=== PATIENT | female | born 1970 | race Caucasian/White ===

== ENCOUNTER 2016-05-23 11:28 | Emergency (ER) | payer OTHER ==
[2016-05-23 11:35] VITALS: RESP 16; TEMP 97.9
--- NOTE | 2016-05-23 13:08 | EDPHY ---
H & P Time Seen by Provider: 05/23/16 12:24 HPI/ROS: CHIEF COMPLAINT: Laceration right index finger HISTORY OF PRESENT ILLNESS: 46-year-old female presents to the emergency department with laceration to the right index finger. The patient was at home and reached for utensils in the sink and accidentally cut her right index finger. The incident happened just prior to arrival. She is right-hand dominant. She believes her tetanus shot is current. ROS: Denies numbness or tingling in her fingers, retained foreign body, bony injury. Past Medical/Surgical History: Negative Social History: Smoking Status: Never smoked Physical Exam: On examination the patient has a 1 cm flap laceration noted to the distal, palmar aspect of the right index finger. Slow active bleeding noted. The wound does not extend into the DIP joint. No nail avulsion noted. The other fingers appear on injured. No palpable bony tenderness. Constitutional: Initial Vital Signs Temperature (C) 36.6 C 05/23/16 11:32 Heart Rate 64 05/23/16 11:32 Respiratory Rate 16 05/23/16 11:32 Blood Pressure 110/74 05/23/16 11:32 O2 Sat (%) 95 05/23/16 11:32 O2 Delivery Mode Room Air Allergies/Adverse Reactions: No Known Allergies Allergy (Unverified 05/23/16 11:32) Home Medications: Medication Instructions Recorded NK [No Known Home Meds] 05/23/16 MDM/Departure - MDM Procedures: Laceration repair. Verbal consent was obtained from the patient. The 1 cm flap laceration on the right index was anesthetized using less than 1 mL of 1% lidocaine with epinephrine. The wound was irrigated with saline, draped and explored to its base with a gloved finger. There were no deep structures involved. No tendon injury was identified. The wound was repaired with 5 0 Ethilon, 3 sutures. The wound repair was simple. The procedure was performed by myself. ED Course/Re-evaluation: 46-year-old female presents to the emergency department with laceration to the right index finger. The wound was repaired, see procedure note. She was given wound care precautions. - Depart Disposition: Home, Routine, Self-Care Clinical Impression: Laceration right 2nd finger Condition: Good Instructions: Care For Your Stitches (ED), Laceration (ED), Acute Wounds (ED) Additional Instructions: Wound Care Follow-Up: Removal of sutures in 10 days. Suture removal is complimentary in uncomplicated cases. Infection or abnormal findings would require reevaluation by the MD. In that case, you may be billed. Return if you notice any signs or symptoms of infection such as redness, swelling, increased pain, fever, purulent drainage.
[2016-05-23 13:30] VITALS: BP 119/79; PULSE 56; O2SAT 99
== END 2016-05-23 13:30 | disposition home or self-care (01) ==
PROC: 0HQFXZZ Repair Right Hand Skin, External Approach (ICD-10-PCS; principal; 2016-05-23)
DX: S61.210A Laceration without foreign body of right index finger without damage to nail, initial encounter (principal); W26.8XXA Contact with other sharp object(s), not elsewhere classified, initial encounter; Y92.009 Unspecified place in unspecified non-institutional (private) residence as the place of occurrence of the external cause; Y93.89 Activity, other specified

== ENCOUNTER 2017-06-05 16:08 | Emergency (ER) | payer OTHER ==
[2017-06-05 16:14] VITALS: RESP 18
--- NOTE | 2017-06-05 16:23 | EDPHY ---
H & P Time Seen by Provider: 06/05/17 16:20 HPI/ROS: CHIEF COMPLAINT: Left wrist pain HISTORY OF PRESENT ILLNESS: This patient is a 47 y/o female complaining of left wrist pain secondary to a fall while snowboarding earlier today. 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 Initially , she felt some minor discomfort, but this increased as she continued down the mountain. The pain is now moderate and increases with wrist movement. She denies any other injuries. She did not hit her head; no headache or neck pain. ROS: No numbness, weakness, bleeding, syncopal episode, other injury. Past Medical/Surgical History: Denies. Social History: Nonsmoker. Lives in [place]. . Works as outdoor adventure instructor. Smoking Status: Never smoked Physical Exam: Alert and pleasant Extremities: Tenderness and swelling over distal radius. Skin: Intact Neuro: Motor and sensory intact Vascular: Capillary refill brisk distally Constitutional: Initial Vital Signs Temperature (C) 36.6 C 06/05/17 16:11 Heart Rate 64 06/05/17 16:11 Respiratory Rate 18 06/05/17 16:11 Blood Pressure 99/89 H 06/05/17 16:11 O2 Sat (%) 93 06/05/17 16:11 O2 Delivery Mode Room Air Allergies/Adverse Reactions: No Known Allergies Allergy (Verified 06/05/17 16:10) Home Medications: Medication Instructions Recorded Hydrocodone/APAP 5/325 [[place] 1 - 2 tab PO Q4H PRN #15 tab 06/05/17 5/325 (*)] Medical Decision Making - Diagnostics Imaging Results: Imaging Impressions Wrist X-Ray 06/05/17 16:23 Impression: 1. Complex distal left radial fracture with intra-articular involvement and mild displacement of the posterior component of the fracture. 2. Fracture of the distal tip of the ulnar styloid. Imaging: I viewed and interpreted images myself Procedures: An OrthoGlass sugar-tong splint was placed by the collections technician. Neurovascularly intact after application. ED Course/Re-evaluation: 47 y/o female presents with left wrist pain secondary to a fall while snowboarding. Exam reveals tenderness and swelling over the left distal radius. Plan for x-ray left wrist. 16:50 Reviewed x-ray. Evidence of distal radius fracture. Slightly displaced intra-articular fracture, will likely require surgery. For this reason, reduction was not attempted. 17:00 Results d/w patient. Plan to administer 600mg PO ibuprofen for pain relief and place her left arm in an Orthoglass sugar tong splint and sling. Plan to d/c home in good condition. Referral to orthopedic surgeon given. She is comfortable with this plan. - Data Points Medications Given: Discontinued Medications Hydrocodone Bitart/Acetaminophen ([place] 5/325mg Prepack#6) 1 btl TAKEHOME EDNOW ONE Stop: 06/05/17 17:04 Last Admin: 06/05/17 17:19 Dose: 1 btl Ibuprofen (Motrin) 600 mg PO EDNOW ONE Stop: 06/05/17 16:56 Last Admin: 06/05/17 17:01 Dose: 600 mg Departure - Departure Disposition: Home, Routine, Self-Care Clinical Impression: Distal radius fracture, left Qualifiers: Encounter type: initial encounter Fracture type: closed Fracture morphology: other intra-articular Qualified Code(s): S52.572A - Other intraarticular fracture of lower end of left radius, initial encounter for closed fracture Condition: Good Instructions: Hydrocodone/Acetaminophen (By mouth), Wrist Fracture in Adults ( ED) Additional Instructions: Rest, ice, elevation. Take ibuprofen or Tylenol as directed below as needed for pain. Take [place] as prescribed as needed for severe pain. Do not take Tylenol with [place] as this medication already contains acetaminophen. Follow up with an orthopedic surgeon. Call tomorrow morning for an appointment. Return to the emergency department for worsening pain, swelling, numbness, weakness or other concerns. Wear splint at all times until reevaluation. Adult Pain & Fever Control: We recommend Acetaminophen (Tylenol) and Ibuprofen (Motrin,Advil) for pain and fever control. When fever is high or pain severe, both drugs can be used at the same time, but at different intervals. Please note the time differences. Your dose is: Acetaminophen 650mg every 4 to 6 hours Ibuprofen 600mg every 6-8 hours with food Note: do not take Acetaminophen with Hydrocodone (Vicodin, Lortab) or Oxycodone (Percocet). These medications also contain Acetaminophen. No more than 3000mg of Acetaminophen should be taken in 24 hours (for an adult). Referrals: Kilo Medina MD [Medical Doctor] - As per Instructions Prescriptions: Hydrocodone/APAP 5/325 [[place] 5/325 (*)] 1 - 2 tab PO Q4H PRN #15 tab PRN Reason: Pain, Moderate Report Scribed for: Hilda Gongora Report Scribed by: Pebbles Salmeron Date of Report: 06/05/17 Time of Report: 16:21 Physician Review and Approval Statement: 06/05/17 16:21 Portions of this note were transcribed by a medical resident. I personally performed a history, physical exam, medical decision making, and confirmed accuracy of information the transcribed note.
[2017-06-05] MEDS ORDERED: IBUPROFEN 600 MG TAB PO ONE (16:55)
[2017-06-05] MEDS ORDERED: HYDROCOD/APAP 5/325 PREPACK#6 BTL TAKEHOME ONE (17:03)
[2017-06-05 18:12] VITALS: BP 128/76; PULSE 69; TEMP 98.6; O2SAT 95
== END 2017-06-05 18:12 | disposition home or self-care (01) ==
DX: S52.572A Other intraarticular fracture of lower end of left radius, initial encounter for closed fracture (principal); V00.311A Fall from snowboard, initial encounter; Y99.8 Other external cause status; Y93.23 Activity, snow (alpine) (downhill) skiing, snowboarding, sledding, tobogganing and snow tubing
CPT/HCPCS: L3908